=== PATIENT | female | born 1985 | race Caucasian/White ===

== ENCOUNTER 2024-09-21 12:02 | Outpatient (CLI) | payer OTHER, SELFPAY ==
[2024-09-21] VITALS (12 sets, daily range): BP systolic 106–123; BP diastolic 50–77; PULSE 47–60; RESP 11–18; TEMP 36.3–36.5; O2SAT 98–100; BMI 34.4
--- NOTE | 2024-09-21 13:00 | XR_ITS ---
MRI shoulder, left, without contrast. Date and time: September 21, 2024 1411 hours INDICATIONS: Left shoulder pain several months Technique: Multiple axial, sagittal and coronal sections of the shoulder have been obtained. Siemens high-resolution 1.5 [employer] MRI scanner is utilized. Axial fat-suppressed sections, TR 2350, TE 18 T2-weighted coronal fat-saturated images, TR 3500, TE 7100 T1-weighted coronal images, TR 500, TE 15 T2-weighted sagittal fat-saturated images, TR 3500, TE 57 T1-weighted sagittal sections, TR 504, TE 13. Findings: Supraspinatus tendon insertion is intact. Infraspinatus tendon insertion is intact. Subscapularis insertion is intact. Subscapularis bursa is not seen. Long head of the biceps is in the bicipital groove. No definite tear of the biceps superior labral anchor is seen. Retraction of the musculotendinous junction of the rotator cuff is not seen . Tendinosis pattern is mild Distance between the acromium and humeral head is 8.7 mm Atrophy of the supraspinatus muscle is mild . Atrophy of the infraspinatus muscle is noted seen. Sagittal sections demonstrate a horizontal acromion. Acromioclavicular joint demonstrates no arthritic change. Osacromiale is not identified. Labral margins intact. Bony glenoid fossa on the sagittal sections does not demonstrate osseous defect. Occult fracture or area of avascular necrosis is not seen. Acromioclavicular joint separation is not visible. Defect in the posterolateral margin of the humeral head is not seen Impression: Rotator cuff and labral margins intact
[2024-09-21 13:30] LABS: HCG,Qualitative Serum Negative
[2024-09-21] MEDS: SODIUM CHLORIDE 0.9% 500 ML 250 ML 20 ML IV (14:10)
[2024-09-21] MEDS: MIDAZOLAM INJ 1 MG/ML VIAL 2 ML 3 MG IV (14:14)
--- NOTE | 2024-09-21 15:00 | PC.NURSE ---
patient tolerated mri with sedation well. patient is alert and oriented. GCS of 15. patient to recover for 1 hr. 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 hand off report given to elissa almaraz.
--- NOTE | 2024-09-21 15:57 | PC.NURSE ---
1448 patient is awake, alert, breathing unlabored, s/p MRI with sedation, report received from Elysia SANDERSON, patient to recovery for 1hr. 1548 patient is awake, alert, breathing unlabored, discharge instructions given, patient discharged home in wheelchair with all belongings.
== END 2024-09-21 15:48 | disposition home or self-care (01) ==
PROVIDERS: Radiology Diagnostic Radiology; Referring Provider Family Medicine; Visit Provider Family Medicine
DX: M25.512 Pain in left shoulder (principal)
CPT/HCPCS: 36415; 73221; 84703; 99152; 99153; J2250; J7040